=== PATIENT | male | born 1970 | race Caucasian/White ===

== ENCOUNTER 2020-11-28 14:46 | Emergency (ER) | payer OTHER ==
[~2020-11-28] VITALS: Ht 167.6 cm; Wt 75.0 kg
--- NOTE | 2020-11-28 16:00 | NUR ---
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
[2020-11-28 18:00] VITALS: BP 132/84
== END 2020-11-28 18:02 | disposition home or self-care (01) ==
LOC: ED 16:46
DX: R07.89 Other chest pain (principal); M41.84 Other forms of scoliosis, thoracic region; R05 Cough; R94.31 Abnormal electrocardiogram [ECG] [EKG]
CPT/HCPCS: 71045; 72072; 93005; 99284